=== PATIENT | female | born 2000 | race Caucasian/White ===

== ENCOUNTER 2021-05-17 12:44 | Emergency (ER) | payer OTHER, SELFPAY ==
[2021-05-17 13:11] VITALS: BP 140/102; PULSE 122; RESP 18; TEMP 37.4; O2SAT 97
[2021-05-17 13:36] LABS: Basophils Percent Auto 0.2 % (0.2-1.2); Eosinophils Percent Auto 0.3 % (0-4.4); Hematocrit 41.3 % (37.0-47.0); Immature Granulocyte Absolute 0.02 K/mm3 (0.00-0.031); Immature Granulocyte Percent A 0.2 % (0-0.5); Lymphocytes Absolute Auto 2.03 K/mm3 (0.9-3.2); Lymphocytes Percent Auto 20.1 % (18.3-44.2); Mean Corpuscular HGB Conc 31.5 g/dl (32-36); Mean Corpuscular Hemoglobin 27.8 pg (26-34); Mean Corpuscular Volume 88.4 fl (80-100); Mean Platelet Volume 9.2 fl (7.4-10.4); Monocytes Absolute Auto 0.9 K/mm3 (0.1-0.6); Monocytes Percent Auto 8.6 % (2.6-8.5); Neutrophils Absolute Auto 7.1 K/mm3 (1.3-6.7); Neutrophils Percent Auto 70.6 % (45.5-73.1); Platelet Count Result 404 k/mm3 (150-375); Red Blood Count 4.67 M/mm3 (4.2-5.4); Red Cell Distribution Width 13.6 % (11.5-14.5); White Blood Count 10.1 K/mm3 (4.5-10.0)
[2021-05-17] MEDS: HYOSCYAMINE SULFATE 0.125 MG TABLET PO (13:44)
[2021-05-17] MEDS: ONDANSETRON INJ 4 MG/2 ML VIAL IV PUSH (13:44)
[2021-05-17] MEDS: SODIUM CHLORIDE 0.9% IV 1,000 ML 999 ML IV CONT (13:44)
[2021-05-17] MEDS: FAMOTIDINE 20 MG/2 ML VIAL IV PUSH (13:44)
[2021-05-17 13:51] LABS: Alanine Aminotransferase 15 U/L (4-35); Albumin Level 4.5 g/dL (3.5-5.1); Alkaline Phosphatase 101 U/L (38-126); Anion Gap 12 mmol/L (8-16); Aspartate Amino Transferase 20 U/L (14-36); Bilirubin,Total 0.5 mg/dL (0.2-1.3); Blood Urea Nitrogen 10 mg/dL (7-17); Calcium 10.3 mg/dL (8.4-10.2); Carbon Dioxide 23 mmol/L (22-30); Chloride 105 mmol/L (98-107); Estimated CRCL calculation 156 ml/min; Estimated Glomerular Filt Rate > 60; Glucose 95 mg/dL (65-110); Lipase 69 U/L (23-300); Potassium 3.9 mmol/L (3.4-5.0); Sodium 140 mmol/L (137-145)
--- NOTE | 2021-05-17 14:22 | ED.GENADULT ---
HPI - General Adult General Chief complaint: Abdominal Pain Stated complaint: abd pain Time Seen by Provider: 05/17/21 13:19 Source: patient and RN notes reviewed Mode of arrival: ambulatory Limitations: no limitations History of Present Illness HPI narrative: Patient is a 21-year-old female who presents with generalized abdominal pain and nausea with history of IBS was seen at an urgent care referred to emergency department on arrival does not appear distressed or uncomfortable she does denies any vaginal bleeding or urinary symptoms or URI symptoms Related Data Allergies Allergy/AdvReac Type Severity Reaction Status Date / Time adhesive tape Allergy Unknown Unknown Verified 05/17/21 13:31 Review of Systems Review of Systems: All systems reviewed & are unremarkable except as noted in HPI and below PMFSH Past Medical History Medical History (Updated 05/17/21 @ 14:25 by Harsha Love PA-C) Irritable bowel syndrome Normal colonoscopy Social History Social History Gender identity (if verbalized by the patient): Female Exam Narrative: GENERAL: Well-appearing, well-nourished, and in no acute distress. HEAD: Normocephalic, atraumatic. EYES: PERRLA and EOMI. ENT: Nares clear, no rhinorrhea or epistaxis. Mucous membranes moist. CHEST: Clear to auscultation. No respiratory distress. No wheezes rales or rhonchi HEART: Regular rate and rhythm. No murmur heard. Normal peripheral pulses. ABDOMEN: Soft, nontender, nondistended EXTREMITIES: Normal range of motion. No edema. SKIN: Warm, dry, no rash. NEURO: No focal deficits. Alert and oriented x3. PSYCH: Normal mood and affect. Course Course Emergency Course: Patient in the room likely IBS feeling better with medications tolerating p.o. intake will be discharged home advised to follow with her specialist Vital Signs Vital signs: Vital Signs Temperature 99.3 F 05/17/21 13:11 Pulse Rate 122 H 05/17/21 13:11 Respiratory Rate 18 05/17/21 13:11 Blood Pressure 140/102 H 05/17/21 13:11 Pulse Oximetry 97 05/17/21 13:11 Temperature 99.3 F 05/17/21 13:11 Pulse Rate 122 H 05/17/21 13:11 Respiratory Rate 18 05/17/21 13:11 Blood Pressure 140/102 H 05/17/21 13:11 Pulse Oximetry 97 05/17/21 13:11 Medical Decision Making MDM Narrative Medical decision making narrative: Patient with abdominal pain no concerning findings at this time tolerating p.o. intake feeling better after hydration and medications will be discharged home with outpatient follow-up Vital Signs Vital Signs: Vital Signs Temperature 99.3 F 05/17/21 13:11 Pulse Rate 122 H 05/17/21 13:11 Respiratory Rate 18 05/17/21 13:11 Blood Pressure 140/102 H 05/17/21 13:11 Pulse Oximetry 97 05/17/21 13:11 Temperature 99.3 F 05/17/21 13:11 Pulse Rate 122 H 05/17/21 13:11 Respiratory Rate 18 05/17/21 13:11 Blood Pressure 140/102 H 05/17/21 13:11 Pulse Oximetry 97 05/17/21 13:11 Lab Data Result diagrams: 05/17/21 13:29 05/17/21 13:29 Labs: Lab Results 05/17/21 05/17/21 Range/Units 13:29 13:29 WBC 10.1 H (4.5-10.0) K/mm3 RBC 4.67 (4.2-5.4) M/mm3 Hgb 13.0 (12.0-15.0) g/dL Hct 41.3 (37.0-47.0) % MCV 88.4 (80-100) fl MCH 27.8 (26-34) pg MCHC 31.5 L (32-36) g/dl RDW 13.6 (11.5-14.5) % Plt Count 404 H (150-375) k/mm3 MPV 9.2 (7.4-10.4) fl Immature Gran % (Auto) 0.2 (0-0.5) % Neut % (Auto) 70.6 (45.5-73.1) % Lymph % (Auto) 20.1 (18.3-44.2) % Cedar % (Auto) 8.6 H (2.6-8.5) % Eos % (Auto) 0.3 (0-4.4) % Baso % (Auto) 0.2 (0.2-1.2) % Lymph # (Auto) 2.03 (0.9-3.2) K/mm3 Cedar # (Auto) 0.9 H (0.1-0.6) K/mm3 Eos # (Auto) 0.0 (0-0.3) K/mm3 Baso # (Auto) 0.0 (0.0-0.1) K/mm3 Abs Immat Gran (auto) 0.02 (0.00-0.031) K/mm3 Absolute Neuts (auto) 7.1 H (1.3-6.7) K/mm3 Absolute Nucleated RBC
[2021-05-17 14:33] LABS: Add Urine Microscopic? YES; Appearance Urine Clear (Clear); Bacteria Urine Trace /hpf; Bilirubin Urine Negative (Negative); Blood Urine Negative (Negative); Color Urine Yellow (Yellow); Glucose Urine UA Negative (Negative); Ketones Urine 1+ mg/dL (Negative); Leukocyte Esterase Ur Negative LEU/UL (Negative); Mucus Urine Rare /lpf; Nitrate Urine Negative (Negative); Protein Urine Negative (Negative); RBC Urine 0-2 /hpf (0-2); Squamous Epithelial Cell Urine Many /hpf (Few); Urobilinogen Urine Negative mg/dL (<2.0); WBC Urine 0-3 /hpf
[2021-05-17 15:30] VITALS: BP 122/67; PULSE 64; RESP 16; O2SAT 98
== END 2021-05-17 15:30 | disposition home or self-care (01) ==
PROVIDERS: Emergency Provider Emergency Medicine; PCP Family Medicine
DX: R10.84 Generalized abdominal pain (principal); K58.9 Irritable bowel syndrome, unspecified
CPT/HCPCS: 36415; 80053; 81001; 81025; 83690; 85025; 96361; 96374; 96375; 99284; A9270; J2405; J7030